=== PATIENT | male | born 1980 | race Caucasian/White ===

== ENCOUNTER 2023-10-07 13:04 | Emergency (ER) | payer OTHER ==
[2023-10-07 13:10] VITALS: BP 124/77; PULSE 63; RESP 20; TEMP 98.4; BMI 33.6
[2023-10-07 15:16] LABS: URINE APPEARANCE CLEAR; URINE BILIRUBIN NEGATIVE (NEGATIVE); URINE COLOR YELLOW; URINE GLUCOSE (UA) NEGATIVE (NEGATIVE); URINE KETONE NEGATIVE (NEGATIVE); URINE LEUK ESTERASE NEGATIVE (NEGATIVE); URINE NITRITE NEGATIVE (NEGATIVE); URINE PROTEIN NEGATIVE (NEGATIVE)
[2023-10-07] MEDS ORDERED: ACETAMINOPHEN 500 MG TABLET (FP) PO ONE (17:08)
[2023-10-07] MEDS ORDERED: IBUPROFEN 600 MG TABLET (FP) PO ONE ×2 (17:09→18:19)
[2023-10-07] MEDS ORDERED: ACETAMINOPHEN 1000 MG/100 ML BAG IVPB ONE (18:18)
[2023-10-07] MEDS ORDERED: ACETAMINOPHEN INJECTION 100 ML IVPB ONE (18:20)
[2023-10-07 18:32] LABS: BASO % 0.4 % (0-2.0); EOS % 2.6 % (0-4.5); HEMATOCRIT 48.2 % (35.4-49); HEMOGLOBIN 16.1 GM/dL (11.7-16.9); LYMPH % 42.5 % (8-40); MCH 28.8 pg (25.7-33.7); MCHC 33.5 g/dl (32.0-35.9); MEAN PLT VOLUME 7.1 fl (7.5-11.1); MONO % 9.2 % (3.8-10.2); NEUT % 45.3 % (42.8-82.8); PLATELET COUNT 286 10^3/uL (134-434); RDW 13.7 % (11.9-15.9); WHITE BLOOD COUNT 8.3 K/mm3 (4.0-10.0)
[2023-10-07 18:52] LABS: POTASSIUM 5.3 mmol/L (3.5-5.1)
[2023-10-07 18:54] LABS: CALCIUM 9.7 mg/dL (8.5-10.1)
[2023-10-07 18:55] LABS: ALBUMIN 3.8 g/dl (3.4-5.0); BLOOD UREA NITROGEN 17.9 mg/dL (7-18)
[2023-10-07 19:00] LABS: BILIRUBIN,TOTAL 0.6 mg/dL (0.2-1); TOT PROT 7.6 g/dl (6.4-8.2)
== END 2023-10-07 22:37 | disposition home or self-care (01) ==
LOC: JER 13:04
PROC: 3E033NZ Introduction of Analgesics, Hypnotics, Sedatives into Peripheral Vein, Percutaneous Approach (ICD-10-PCS; principal; 2023-10-07)
DX: N50.812 Left testicular pain (principal); N50.811 Right testicular pain
CPT/HCPCS: 36415; 74177-TC; 76870-TC; 80053; 81003; 85025; 87086; 87491; 87591; 99285-25

== ENCOUNTER 2024-08-01 12:13 | Emergency (ER) | payer OTHER ==
[2024-08-01 12:28] VITALS: BP 124/80; PULSE 73; RESP 18; TEMP 98.2; BMI 33.6
[2024-08-01 13:32] LABS: URINE APPEARANCE CLEAR; URINE BILIRUBIN NEGATIVE (NEGATIVE); URINE COLOR YELLOW; URINE GLUCOSE (UA) NEGATIVE (NEGATIVE); URINE KETONE NEGATIVE (NEGATIVE); URINE LEUK ESTERASE NEGATIVE (NEGATIVE); URINE NITRITE NEGATIVE (NEGATIVE); URINE PROTEIN NEGATIVE (NEGATIVE)
[2024-08-01] MEDS ORDERED: IBUPROFEN 400 MG TABLET (FP) PO ONE (15:30)
[2024-08-01] MEDS: IBUPROFEN 400 MG TABLET (FP) PO ONE (15:33)
[2024-08-02 11:36] LABS: HIV INTERPRETATION NEGATIVE (NEGATIVE)
== END 2024-08-01 15:33 | disposition home or self-care (01) ==
LOC: JER 12:13
DX: N43.3 Hydrocele, unspecified (principal); N50.811 Right testicular pain
CPT/HCPCS: 36415; 76870-TC; 81003; 86780; 86803; 87086; 87389; 87491; 87591; 87661; 99284-25